=== PATIENT | female | born 1950 | race Caucasian/White ===

== ENCOUNTER → 2020-03-14 | Outpatient (CLI) | payer MEDICARE ==
--- NOTE | 2020-03-18 15:56 | RAD ---
BILATERAL SCREENING MAMMOGRAM, 3-D History: Routine screening. Comparison: 01/06/2019 screening exam, 5 01/07/2019 right diagnostic mammographic images. Technique: MLO and CC digital tomosynthesis (3D) images obtained. Radiologist reviewed these images on dedicated workstation. Findings: Breast Tissue Density C : The breasts are heterogeneously dense, which may obscure small masses. There are no dominant masses, suspicious microcalcifications, or architectural distortion. IMPRESSION: No mammographic evidence of malignancy. Recommend routine screening. BI-RADS category 1: Negative. The images were reviewed with computer-aided detection. Patient information is entered into reminder system with a target due date for the next screening mammogram. Mammography is the most sensitive method for finding small breast cancers, but it does not detect them all and is not a substitute for careful clinical examination. A negative mammogram does not negate a clinically suspicious finding and should not result in delay in biopsying a clinically suspicious abnormality. "Our facility is accredited by the [employer] Mammography Program." Electronically signed by: Vince Dailey MD (03/18/2020 3:53 PM) [email or web address]
== END | disposition home or self-care (01) ==
LOC: MAMMO 08:04
PROVIDERS: ATTEND Internal Medicine
DX: Z12.31 Encounter for screening mammogram for malignant neoplasm of breast (principal)
CPT/HCPCS: 77063; 77067

== ENCOUNTER → 2020-07-31 | Outpatient (CLI) | payer MEDICARE | LOC: LAB 09:09 | PROVIDERS: ATTEND Nurse Anesthetist, Certified Registered | DX: Z01.818 Encounter for other preprocedural examination (principal); K21.9 Gastro-esophageal reflux disease without esophagitis; Z20.828 Contact with and (suspected) exposure to other viral communicable diseases | CPT/HCPCS: U0003 ==

== ENCOUNTER → 2020-08-06 | Day surgery (SDC) | payer MEDICARE ==
[~2020-08-06] MED LIST: CALC-104 PO; DOCU100T5 PO; ESTR10IN VG; ESTR1PAT TD; FAMO10TA26 PO; IPRATRPIUM/ALBUTEROL 0.5/2.5MG 3 ML NEBU. NEB PRN; IV RINGERS SOLUTION,LACTATED 1,000 ML IV SCH; LIDOCAINE 2% PF 5 ML VIAL. ONE; MIDAZOLAM HCL PF 2 MG/2 ML VIAL. IV ONE; ONDANSETRON PF 4 MG/2 ML VIAL. IV PRN; PROPOFOL 10,000 MCG/ML (20ML) VIAL IV ONE; VIT1TABL32 PO
[2020-08-06 08:24] VITALS: BP 128/75
--- NOTE | 2020-08-08 20:05 | PATHOLOGY ---
[facility] Accession Number: [id number] . 01 Material submitted: . PART A: stomach - GASTRIC FOR GASTRITIS PART B: esophagus - DISTAL ESOPHAGUS HX OF REFLUX. Modifiers: distal PART C: rectum - RECTAL SCAR BIOPSY . 01 Clinical history: . GERD, HX POLYPS, REF/HEARTBURN . 02 Diagnosis: A. Gastric biopsies: - Congestion and focal slight chronic inflammation. . B. Esophageal biopsy, distal esophagus: - Segment of mildly hyperplastic squamous esophageal mucosa. . C. Colorectal biopsy, rectum: - Segments of rectal mucosa showing reactive surface epithelial hyperplastic changes and focal mild fibrosis of lamina propria. (JPM:pit 08/08/2020) [facility] 08/08/2020 0936 Local . 02 Comment: Sections of the gastric biopsy reveal segments of gastric body and gastric antral mucosa showing congestion and only focal slight chronic inflammation. A properly controlled immunoperoxidase stain for Helicobacter is negative for Helicobacter organisms. . Sections of the distal esophageal biopsy reveal a segment of mildly hyperplastic squamous esophageal mucosa. The findings are consistent with mild reflux changes. There is no evidence of Wellington's change, dysplasia, or malignancy. . Sections of the rectal biopsy reveal segments of rectal mucosa showing reactive surface epithelial hyperplastic changes and focal mild fibrosis of lamina propria. There is no significant inflammation. There are no adenomatous changes or evidence of malignancy. (JPM:pit 08/08/2020) . Special stain performed: Immunoperoxidase stain for Helicobacter on A1. . 02 Electronically signed: . Owen Gallegos MD, Pathologist NPI- [id number] . 01 Gross description: . A. The specimen is received in formalin, labeled "Indira Diamond, gastric BX" and consists of 2 segments of pink-oneill tissue measuring 0.6 x 0.2 cm each which are entirely submitted in A1. . B. The specimen is received in formalin, labeled " Indira Diamond, distal esophagus" and consists of a translucent segment of pink tissue measuring 0.7 x 0.3 cm which is entirely submitted in B1. . C. The specimen is received in formalin, labeled " Lobo, Indira, rectal scar BX" and consists of 2 fragments of pink-oneill tissue measuring 0.2 x 0.2 cm each which are entirely submitted in C1. (SDY; 08/07/2020) SYU/SYU 08/07/2020 1430 Local . 02 Pathologist provided ICD-10: K29.50, K21.00, Z86.010 . 02 CPT . 893112, 356190, [id number], [id number] Specimen Comment: A courtesy copy of this report has been sent to [phone], [phone] Specimen Comment: [id number] Specimen Comment: Report sent to / DR WRAY Performed at: 01 [facility] [address], [place] [id number] MD Jay Martinez MD Phone: [phone] Performed at: 02 [facility] [address] [place], [place] [id number] MD Owen Gallegos MD Phone: [phone]
== END | disposition home or self-care (01) ==
LOC: SURG 06:39
PROVIDERS: ATTEND Emergency Medicine
DX: Z12.11 Encounter for screening for malignant neoplasm of colon (principal); R12 Heartburn; K22.8 Other specified diseases of esophagus; K29.50 Unspecified chronic gastritis without bleeding; K21.00 Gastro-esophageal reflux disease with esophagitis, without bleeding; K62.89 Other specified diseases of anus and rectum; K63.89 Other specified diseases of intestine; Z88.5 Allergy status to narcotic agent; Z88.8 Allergy status to other drugs, medicaments and biological substances; Z88.2 Allergy status to sulfonamides; Z79.899 Other long term (current) drug therapy; Z86.010 Personal history of colon polyps
CPT/HCPCS: 43239; 45380; 88305; 88342; J2001; J2704; J7120